=== PATIENT | male | born 1950 | race Caucasian/White ===

== ENCOUNTER → 2023-12-24 11:05 | Outpatient (REF) | payer MEDICARE, BC, SELFPAY | LOC: HWRAD 11:05 | PROVIDERS: ATTENDING PHYSICIAN Urology; FAMILY PHYSICIAN Family Medicine | DX: N20.0 Calculus of kidney (principal) | CPT/HCPCS: 76775 ==

== ENCOUNTER 2024-12-13 17:13 | Emergency (ER) | payer MEDICARE, BC, SELFPAY ==
[2024-12-13 17:15] VITALS: BP 128/74
[2024-12-13 18:08] VITALS: BMI 16.7
[2024-12-13 18:12] VITALS: BP 108/73
[2024-12-13 18:34] LABS: Glucose - Point of Care 472 mg/dl (70-99)
[2024-12-13] MEDS: NSS 1000 IV (18:38)
[2024-12-13 18:45] LABS: % Eosinophils 0.8 % (0-6); % Immature Granulocytes 0.5 % (0-0.5); % Lymphocytes 16.8 % (20.5-51.1); % Monocytes 8.4 % (1.7-9.3); % Neutrophils 72.5 % (42.2-75.2); Absolute Basophils 0.1 10^3/uL (0-0.2); Absolute Eosinophils 0.1 10^3/uL (0-0.7); Absolute Monocytes 0.5 10^3/uL (0.1-0.6); Absolute Neutrophils 4.5 10^3/uL (1.4-6.5); Hematocrit 24.9 % (39.0-52.0); Hemoglobin 9.1 g/dL (13.0-18.0); Mean Corp Hgb Conc. 36.5 g/dL (33.0-37.0); Mean Corpuscular Hgb 32.5 pg (27.0-31.0); Mean Corpuscular Volume 88.9 fL (80.0-94.0); Mean Platelet Volume 11.2 fL (7.4-10.4); Nucleated Red Blood Cells % 0 % (-); Platelet Count 191 10^3/uL (130-400); Red Cell Dist. Width 14.2 % (11.5-14.5); White Blood Cell Count 6.2 10^3/uL (4.8-10.8)
--- NOTE | 2024-12-13 18:55 | ED.GENMED ---
History of Present Illness
<SHRAVAN Alvarado - Last Filed: 12/13/24 22:16>
General
Chief Complaint: Blood Sugar Problem
Source: patient
Exam Limitations: none
Time Seen by Provider: 12/13/24 18:24
History of Present Illness
History of Present Illness:
74 y/o male with a PMH of type 2 diabetes and hemolytic anemia presenting to the ED for elevated blood glucose = 479. Checked his blood sugar due to feeling 'extra fatigued' after going on a walk and found it to be 300. Took metformin and checked
blood sugar after lunch, found it to be 479. States he has been feeling more thirsty and urinating more often throughout this week. Reports associated 6 pound weight loss over the past 2 weeks. Does not attribute weight loss to anything else. Had
COVID last month, symptoms resolved but believes it is causing his high blood sugar. States this occurred before a year ago while he was taking steroids and had to come to ED for having a blood sugar >400. Denies any recent steroid use. Pt is not on
insulin, takes 2 tablets of 500mg metformin daily (1 tablet AM, 1 tablet PM). Does not regularly check his blood sugar. Denies AMS, confusion, fever/chills, blurry vision, SOB, chest pain, abdominal pain, N/V/D, dysuria.
Past History
<SHRAVAN Alvarado - Last Filed: 12/13/24 22:16>
Past History
ED Past Medical History: NIDDM, Other (kidney stones) and Other (Autoimmune hemolytic anemia)
ED Past Surgical History: Urological
Social History
Tobacco: Smoker
Alcohol: Occasional
Drug: None
Personal:
Living: with family
Employment: Other
Family History
Family History: Negative Diabetes, Hypertension or CAD
Review of Systems
<SHRAVAN Alvarado - Last Filed: 12/13/24 22:16>
Review of Systems
Allergies reviewed?: Yes
Constitutional: Reports weight loss (6 pounds over 2 weeks) and fatigue
EENT: Reports no symptoms
Respiratory: Reports no symptoms
Cardiac: Reports no symptoms
ABD/GI: Reports no symptoms
: Reports frequency
Musculoskeletal: Reports no symptoms
Skin: Reports rash (resolving poison caleb)
Endocrine: Reports polyuria and polydipsia
Hematologic/Lymphatic: Reports no symptoms
Phy Exam
<Berto Camp [facility] - Last Filed: 12/13/24 22:16>
General Physical Exam
General Presentation: well appearing and no apparent distress
General age: appears stated age
General Skin: warm and dry
General Habitus: normal and elderly
General Mental: alert
General Hydration: appears well hydrated
ENT Exam
ENT Exam: pharynx normal and normocephalic
Cardiovascular Exam
Cardiovascular Exam: regular rate/rhythm, no gallop, no murmur and normal peripheral pulses
Pulmonary Exam
Pulmonary Exam: lungs clear and no respiratory distress
Respiratory Effort: other (normal respiratory effort)
Cough: no cough
Gastrointestinal Exam
Gastrointestinal Exam: non tender, soft and non distended
Palpation: generalized: No tenderness
Neurological Exam
Neurological Exam: alert, oriented x3 and speech normal
Skin Exam
Skin Exam: normal color and warm/dry
Course
<Berto Camp [facility] - Last Filed: 12/13/24 22:16>
Orders/Labs/Results
Orders:
Orders
12/13/24 18:33
Complete Blood Count/With Diff Urgent
Comprehensive Metabolic Panel Urgent
Glycohemoglobin (HgbA1c) Urgent
Haptoglobin [S] Urgent
Comment: ADD ON
LDH Urgent
Comment: ADD ON
Magnesium Urgent
Reticulocyte Count Urgent
Comment: ADD ON
12/13/24 18:36
0.9% Sodium Chloride 1000 ml [Nss] 1,000 ml IV BOLUS
12/13/24 19:05
Add On- LAB Urgent
Tests Added?: hemoglobin A1C
12/13/24 19:21
Insulin Regular, Human Pen [NovoLIN R Flexpen] 8 units SC NOW STA
12/13/24 19:26
Add On- LAB Urgent
Tests Added?: LDH, retic count, haptoglobin
12/13/24 19:40
Glucose Urgent
12/13/24 19:51
Insulin Aspart [NOVOLOG vial] 5 units SC NOW STA
12/13/24 20:20
Urinalysis Urgent
Date Specimen was Collected: 12/13/24
Time Specimen was Collected: 20:03
12/13/24 21:31
GlipiZIDE [Glucotrol] 5 mg PO NOW STA
Abnormal Lab Results
12/13/24 12/13/24 12/13/24
18:33 19:37 19:40
RBC 2.80 L 10^6/uL
(4.70-6.10)
Hgb 9.1 L g/dL
(13.0-18.0)
Hct 24.9 L %
(39.0-52.0)
MCH 32.5 H pg
(27.0-31.0)
MPV 11.2 H fL
(7.4-10.4)
Absolute Lymphs (auto) 1.0 L 10^3/uL
(1.2-3.4)
Lymphocytes % 16.8 L %
(20.5-51.1)
Sodium 130 L mmol/L
(135-145)
BUN 30 H mg/dl
(9-20)
Glucose 438 H mg/dl 393 H mg/dl
(70-99) (70-99)
Total Protein 5.8 L g/dl
(6.3-8.2)
Urine Glucose
POC Glucose 472 H* mg/dl 418 H mg/dl
() (-99)
12/13/24 12/13/24 12/13/24
20:16 20:20 21:21
RBC
Hgb
Hct
MCH
MPV
Absolute Lymphs (auto)
Lymphocytes %
Sodium
BUN
Glucose
Total Protein
Urine Glucose 4+ A
(Negative)
POC Glucose 387 H mg/dl 322 H mg/dl
() ()
12/13/24 18:33
12/13/24 19:40
Vital Signs
Initial and Last Documented VS:
Initial Vital Signs
Temp Pulse Resp BP Pulse Ox
98.2 F 83 16 128/74 99
12/13/24 17:15 12/13/24 17:15 12/13/24 17:15 12/13/24 17:15 12/13/24 17:15
Last Documented Vital Signs
Temp Pulse Resp BP Pulse Ox
97.6 F 73 15 114/76 99
12/13/24 18:12 12/13/24 21:41 12/13/24 21:41 12/13/24 21:41 12/13/24 21:41
<Josue Mancera, DO - Last Filed: 12/13/24 21:31>
Orders/Labs/Results
Orders:
Orders
12/13/24 18:33
Complete Blood Count/With Diff Urgent
Comprehensive Metabolic Panel Urgent
Glycohemoglobin (HgbA1c) Urgent
Haptoglobin [S] Urgent
Comment: ADD ON
LDH Urgent
Comment: ADD ON
Magnesium Urgent
Reticulocyte Count Urgent
Comment: ADD ON
12/13/24 18:36
0.9% Sodium Chloride 1000 ml [Nss] 1,000 ml IV BOLUS
12/13/24 19:05
Add On- LAB Urgent
Tests Added?: hemoglobin A1C
12/13/24 19:21
Insulin Regular, Human Pen [NovoLIN R Flexpen] 8 units SC NOW STA
12/13/24 19:26
Add On- LAB Urgent
Tests Added?: LDH, retic count, haptoglobin
12/13/24 19:40
Glucose Urgent
12/13/24 19:51
Insulin Aspart [NOVOLOG vial] 5 units SC NOW STA
12/13/24 20:20
Urinalysis Urgent
Date Specimen was Collected: 12/13/24
Time Specimen was Collected: 20:03
12/13/24 21:31
GlipiZIDE [Glucotrol] 5 mg PO NOW STA
Abnormal Lab Results
12/13/24 12/13/24 12/13/24
18:33 19:37 19:40
RBC 2.80 L 10^6/uL
(4.70-6.10)
Hgb 9.1 L g/dL
(13.0-18.0)
Hct 24.9 L %
(39.0-52.0)
MCH 32.5 H pg
(27.0-31.0)
MPV 11.2 H fL
(7.4-10.4)
Absolute Lymphs (auto) 1.0 L 10^3/uL
(1.2-3.4)
Lymphocytes % 16.8 L %
(20.5-51.1)
Sodium 130 L mmol/L
(135-145)
BUN 30 H mg/dl
(9-20)
Glucose 438 H mg/dl 393 H mg/dl
() ()
Total Protein 5.8 L g/dl
(6.3-8.2)
Urine Glucose
POC Glucose 472 H* mg/dl 418 H mg/dl
() ()
12/13/24 12/13/24 12/13/24
20:16 20:20 21:21
RBC
Hgb
Hct
MCH
MPV
Absolute Lymphs (auto)
Lymphocytes %
Sodium
BUN
Glucose
Total Protein
Urine Glucose 4+ A
(Negative)
POC Glucose 387 H mg/dl 322 H mg/dl
() ()
12/13/24 18:33
12/13/24 19:40
Vital Signs
Initial and Last Documented VS:
Initial Vital Signs
Temp Pulse Resp BP Pulse Ox
98.2 F 83 16 128/74 99
12/13/24 17:15 12/13/24 17:15 12/13/24 17:15 12/13/24 17:15 12/13/24 17:15
Last Documented Vital Signs
Temp Pulse Resp BP Pulse Ox
97.6 F 73 15 114/76 99
12/13/24 18:12 12/13/24 21:41 12/13/24 21:41 12/13/24 21:41 12/13/24 21:41
Sarahlt;SHRAVAN Alvarado - Last Filed: 12/13/24 22:16>
*Critical Care Note
Total Time (30-74mins, 75-104mins- exclusive of procedures): Not Applicable
ED Attending Note
<SHRAVAN Alvarado - Last Filed: 12/13/24 22:16>
-
Portions of this chart may have been created with voice recognition software.� Occasional wrong word or��sound alike� substitutions may have occurred due to the inherent limitations of voice recognition software.
<Josue Goodman DO [facility] - Last Filed: 12/13/24 21:31>
ED Attending Note
Patient seen and examined by attending physician: Yes
I performed the substantive portion of visit, reviewed & personally made and approve the management plan that is documented in note by myself or GLEN.: Yes
ED Attending Note:
I evaluated the patient at bedside. The patient presents with some fatigue and is found to be markedly hyperglycemic only taking metformin 500 mg twice daily. We gave IV fluids at first and then gave insulin. He was primarily concerned of the low
hemoglobin of 9.1 today down from the 's more recently. 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
diabetes.
At 7:41 PM: I notified Dr. Rios covering for Dr. Ellis of patient's presentation. The patient received IV fluids repeat blood sugar but repeat blood sugar still above 400 on fingerstick will give. 5 units of subcu insulin (patient is less than 50
kg).
I also spoke to Dr. Dodson with endocrinology who recommends patient start extended release glipizide 5 mg once daily.
Discharge Plan
Departure
Patient Disposition: Home (Routine Discharge)
Date of Disposition: 12/13/24
Time of Disposition: 21:32
Patient with high blood pressure during this ER visit?: Yes
Discharge Problem:
Acute hyperglycemia
Prescriptions:
New
glipizide 5 mg tablet extended release 24hr
5 mg PO DAILY Qty: 30 0RF
No Action
metformin 500 MG tablet
500 mg PO BID@0800,1700
Rituxan
See Rx Instructions .ROUTE .COMPLEX
Rx Instructions:
pt revieced Iv once on 06/22 is unsure dose
prednisone 10 mg tablet
See Rx Instructions .ROUTE .COMPLEX
Rx Instructions:
Take 5 Tabs daily for 2 weeks THEN
Take 4 Tabs daily for 1 week THEN
Take 3 Tabs daily for 1 week
folic acid 1 mg tablet
1 mg PO DAILY
glipizide 5 mg tablet
5 mg PO BID@0800,1700
Rx Instructions:
dose was previously 1/2 tablet (2.5mg) but pt stated he was told to take full tablet due to high blood sugars 06/28/23
Referrals:
Munir Nath Jr., DO [Family Provider] -
Vernell Dodson MD [Consulting Staff] - Next open appointment
Richy Ellis MD [Active] - Follow up in 5-7 days
Activity Restrictions/Additional Instructions:
I spoke to an senior integration developer, Dr. Dodson who recommends glipizide extended release 5 mg daily. Your blood sugar came down to 322 after the fluids and 5 units of insulin. I also notified Dr. Rios who also feels that you can go home as long
as your bilirubin level was normal (it is normal). Your LDH is normal. A1c and haptoglobin are both pending. Reticulocyte count is normal (it was extremely high in 2022.
Interventions
Interventions:
*Risk Screen - Suicide Last Done: 12/13/24 17:15
*General Assessment Last Done: 12/13/24 18:12
*Neglect/Abuse Screening Last Done: 12/13/24 17:15
*ED- Fall Risk Assessment Last Done: 12/13/24 18:12
*ED COVID-19 Vaccine History Last Done: 12/13/24 18:12
*Nursing Disposition Last Done: 12/13/24 21:49
ED- Neurological Assessment Last Done: 12/13/24 18:12
Discharge Date and Time
Discharge Date/Time: 12/13/24 22:03
Print Language: ISRAELI
[2024-12-13 18:56] LABS: ALT (SGPT) 14 U/L (0-50); AST (SGOT) 19 U/L (17-59); Albumin 3.6 g/dl (3.5-5.0); Alkaline Phosphatase 94 U/L (38-126); Blood Urea Nitrogen 30 mg/dl (9-20); Calcium 8.4 mg/dl (8.4-10.2); Carbon Dioxide 25 mmol/L (22-30); Chloride 98 mmol/L (98-107); Estimated Creatinine Clearance 52 ml/min; Glucose 438 mg/dl (70-99); Magnesium 1.7 mg/dl (1.6-2.3); Potassium 4.4 mmol/L (3.5-5.1); Sodium 130 mmol/L (135-145); Total Bilirubin 0.6 mg/dl (0.2-1.3); Total Protein 5.8 g/dl (6.3-8.2); eGFR > 60.00
[2024-12-13 19:15] VITALS: BP 115/71
[2024-12-13 19:37] LABS: Reticulocyte Count 2.4 % (0.4-2.8)
[2024-12-13 19:38] LABS: Glucose - Point of Care 418 mg/dl (70-99)
[2024-12-13] MEDS: NOVOLOG vial 5 UNITS SC (19:58)
[2024-12-13 20:00] VITALS: BP 129/68
[2024-12-13 20:00] LABS: LDH 163 U/L (120-246)
[2024-12-13 20:02] LABS: Glucose 393 mg/dl (70-99)
[2024-12-13 20:19] LABS: Glucose - Point of Care 387 mg/dl (70-99)
[2024-12-13 20:25] LABS: Urine Albumin Negative (Neg - Trace); Urine Bilirubin Negative (Negative); Urine Character Clear (Clear); Urine Color Yellow; Urine Glucose 4+ (Negative); Urine Ketone Negative (Negative); Urine Leukocyte Negative (Negative); Urine Nitrite Negative (Negative); Urine Occult Blood Negative (Negative); Urine Specific Gravity 1.005 (<1.030); Urine Urobilinogen Negative (Neg - 1+); Urine pH 6.5 (5.0-9.0)
[2024-12-13 21:00] VITALS: BP 100/67
[2024-12-13 21:22] LABS: Glucose - Point of Care 322 mg/dl (70-99)
[2024-12-13] MEDS: GLUCOTROL 5 MG PO (21:40)
[2024-12-13 21:41] VITALS: BP 114/76
[2024-12-14 08:54] LABS: Glycohemoglobin (HgbA1c) 9.9 % (4.0-5.6)
== END 2024-12-13 22:03 | disposition home or self-care (01) ==
LOC: EMR 17:13
PROVIDERS: EMERGENCY PHYSICIAN Emergency Medicine; FAMILY PHYSICIAN Family Medicine
DX: E11.65 Type 2 diabetes mellitus with hyperglycemia (principal); F17.200 Nicotine dependence, unspecified, uncomplicated; Z87.442 Personal history of urinary calculi
CPT/HCPCS: 99283; 96372; 96360; 80053; 81003; 82947; 82962; 83010; 83036; 83615; 83735; 85025; 85045

== ENCOUNTER → 2024-12-26 15:37 | Outpatient (REF) | payer MEDICARE, BC, SELFPAY | LOC: HWRAD 15:37 | PROVIDERS: ATTENDING PHYSICIAN Urology; FAMILY PHYSICIAN Family Medicine | DX: N20.0 Calculus of kidney (principal) | CPT/HCPCS: 76775 ==